=== PATIENT | male | born 1990 | race Caucasian/White ===

== ENCOUNTER 2017-06-13 15:26 | Emergency (ER) | payer MEDICAID ==
[~2017-06-13] VITALS: Ht 180.3 cm; Wt 126.6 kg
[~2017-06-13 15:26] MED LIST: ALEVE220 MG PO; BACTROBAN22 TP; CIPRO 500MG TA500 MG PO; EXCEDRIN TENSIO1 CAP PO; HYDROCODONE-APA1 TA1 PO; KEFLEX 500MG.500 MG PO; LORTAB 5/500 501 TAB PO; NOMEDS XX; TESSALON PERLE100 MG PO; TRAMADOL 50MG T50 MG PO; TYLENOL W/CODEI1 TA2 PO; ZITHROMAX Z-PA250 M2 PO
--- NOTE | 2017-06-13 15:48 | [facility] Report ---
History of Present Issue Date/Time Seen by Provider 06/13/17 1547 Visit Reason Pt arrived:Walked Presenting Problem:SORE THROAT, COUGH, CONGESTION, X2 DAYS. Location if Accident: Onset of symptoms date/time:06/12/1701/21/1000 or onset unknown for: Have you (or family members/close friends) recently traveled outside the [place]? N If Yes, where/when: Have you had exposure to infectious disease within the past month? TB? Other? Specify: c/o "I think I have strep. I have a really bad sore throat." c/o Sore throat x 2 days. Does have an occasional cough with intermittent nasal congestion. no fever. Sore throat the worst in the morning. Better throughout the day and with drinking warm fluids. No known sick contacts. Source patient Exam Limitations no limitations ALLERGIES Coded Allergies: MDX - PCN (penicillin) (PCN (PENICILLIN)) (11/13/14) Home Medications Active Scripts Azithromycin (Zithromax) 250 MG PO DAILY #6 TAB Prov: 07/06/14 BENZONATATE (Benzonatate) 200 MG PO TIDP PRN cough #15 CAP Prov: 07/06/14 Reported Medications No Home Medications (NO HOME MEDICATIONS) 1 EACH XX ONCE History Medical History General Angina: No VT: No Hypertension? No Hyperlipidemia? No CHF? No COPD? No Asthma? Yes CVA? No Seizures? No Diabetes? No GB Disease: No MRSA? No TB? No Cancer? No Immunization HX Ped.Immunizations UTD Yes DT/Tetanus 1-4 Years Ago Surgical Hx Previous Surgery?Y TONSILLECTOMY Social History Smoking Hx Smoker: Former Smoker Tobacco: No Packs/day < 1 Pack Are you/the child exposed to second-hand smoke: No Alcohol Alcohol: No Review of Systems All Other Systems Reviewed and Negative Constitutional see HPI, denies malaise Eyes denies drainage ENT see HPI. denies: ear pain, ear discharge, nose discharge, throat swelling. Respiratory see HPI, denies shortness of breath, denies wheezing Cardiovascular denies chest pain Gastrointestinal denies no symptoms reported Musculoskeletal denies joint pain Skin denies rash Psychiatric/Neurological denies headache Physical Exam Vital Signs Vital Signs Date Time Temp Pulse Resp B/P Pulse O2 O2 Flow FiO2 Ox Delivery Rate 06/13 1544 98.7 80 20 123/85 98 General Appearance normal appearance, no apparent distress Eye Exam - bilateral eye normal exam Ear, Nose, Throat normal ENT inspection Neck non-tender, supple Respiratory Status No: respiratory distress, productive cough, non productive cough. Lung Sounds anterior: lungs clear. posterior: lungs clear. bilateral: lungs clear. Cardiovascular regular rate/rhythm, no peripheral edema, no murmur Neurologic alert, oriented x 3 Skin normal color, warm/dry Lymphatic no adenopathy Medical Decision Making LABS/Meds/Orders Pt receiving controlled substance in ED? No Results/Orders Laboratory Tests 06/13/17 1554: Influenza Type A Ag Pending, Influenza Type B Ag Pending, Group A Strep Screen Pending Orders Procedure Date/time Status UTC STREP SCREEN 06/13 1554 Active UTC FLU A,B 06/13 1554 Active Departure Departure Time of Disposition 1552 Disposition DC Home or Self Care(routine) Clinical Impression Primary Impression: Acute viral pharyngitis Condition STABLE Referrals NO REFERRAL IMMEDIATELY for new or worsening symptoms OR no noticeable improvement over the next 72 hours. 911 for difficulty breathing or swallowing. Patient Instructions DI for Viral Pharyngitis Additional Instructions * No sign of bacterial infection. Likely viral. Virus can take 7-14 days to run their course * Monitor Temp. Tylenol every 4 hours as needed no more then 5 times a day or 4000mg in 24 hours and/or ibuprofen every 6 hours as needed no more then 3200mg in 24 hours (as long as your primary care doctor has told you that it is ok to take both) for fever/aches/pain. ER if fever no less than 101 despite tylenol and ibuprofen * Encourage fluids, water, gatorade, powerade, pedialyte if infant/toddler/child * warm salt water gargles * warm fluids * sore throat lozenges * sleep elevated * humidifier/vaporizer * * Your throat swab was sent for culture. Those results are typically sent to your primary care. Be sure to follow up in 2-3 days if no improvement so they can review those results and treat if necessary. If you don't have primary care, I recommend you get one but in the mean time, you will have to return to a walk in clinic. Discharge Counseling Counseled pt/family regarding diagnosis, test results, medications/RX, home care, follow up needs at 1555
[2017-06-13 15:55] LABS: UTC STREP SCREEN NOT DETECTED (NOTDETECTED)
[2017-06-13 15:58] VITALS: BP 123/85
== END 2017-06-13 16:00 | disposition home or self-care (01) ==
LOC: UTC 15:26
PROVIDERS: Nurse Practitioner Family
DX: J02.9 Acute pharyngitis, unspecified (principal); Z87.891 Personal history of nicotine dependence; J45.909 Unspecified asthma, uncomplicated; Z88.0 Allergy status to penicillin